=== PATIENT | female | born 1995 | race Hispanic/Latino ===

== ENCOUNTER 2017-10-24 08:14 | Emergency (ER) | payer OTHER ==
--- NOTE | 2017-10-24 08:42 | ER ---
Nurse's Notes [facility] Name: Lulú Salgado Age: 22 yrs Sex: Female : 1995 Arrival Date: 10/24/2017 Time: 08:18 Bed 20 Private MD: Out, [facility] Diagnosis: Otitis media, unspecified, right ear;Otitis externa Presentation: 10/24 08:26 Presenting complaint: Patient states: R ear pain and intermittent fever since yesterday ss morning. Transition of care: patient was not received from another setting of care. Onset of symptoms was October 23, 2017. Risk Assessment: Do you want to hurt yourself or someone else? Patient reports no desire to harm self or others. Initial Sepsis Screen: Does the patient meet any 2 criteria? No. Patient's initial sepsis screen is negative. Does the patient have a suspected source of infection? No. Patient's initial sepsis screen is negative. Care prior to arrival: None. 08:26 Method Of Arrival: Ambulatory ss 08:26 Acuity: BEHZAD 5 ss Historical: - Allergies: 08:27 No Known Allergies; ss - Home Meds: 08:27 levothyroxine 300 mcg tab 1 tab once daily [Active]; ss - PMHx: 08:27 Seizures; Hypothyroidism; thyroid CA (resolved s/p thyroidectomy); ss - PSHx: 08:27 Thyroidectomy; L leg; bilateral feet; ss - Immunization history:: Adult Immunizations unknown. - Social history:: Smoking status: Patient/guardian denies using tobacco. - Ebola Screening: : Patient denies exposure to infectious person Patient denies travel to an Ebola-affected area in the 21 days before illness onset. - Family history:: not pertinent. Screenin:47 Abuse screen: Denies threats or abuse. Denies injuries from another. Nutritional ph screening: No deficits noted. Tuberculosis screening: No symptoms or risk factors identified. Fall Risk None identified. Assessment: 08:48 General: Appears in no apparent distress. comfortable, Behavior is calm, cooperative, ph appropriate for age, Reports fever for 12-24 hours. Pain: Complains of pain in right ear. Neuro: Level of Consciousness is awake, alert, obeys commands, Oriented to person, place, time, situation. Cardiovascular: Capillary refill < 3 seconds in bilateral fingers Patient's skin is warm and dry. Respiratory: Airway is patent Respiratory effort is even, unlabored, Respiratory pattern is regular, symmetrical. EENT: Reports pain in right ear. Derm: Skin is intact, is healthy with good turgor, Skin is pink, warm \T\ dry. Musculoskeletal: Circulation, motion, and sensation intact. Range of motion: intact in all extremities. Vital Signs: 08:27 Resp 16; Weight 93.44 kg; Height 4 ft. 11 in. (149.86 cm); Pain 8/10; ss 09:08 BP 131 / 82; Pulse 84; Resp 18; Temp 98.7; Pulse Ox 100% on R/A; ph 08:27 Body Mass Index 41.61 (93.44 kg, 149.86 cm) ED Course: 08:18 Patient arrived in ED. sb2 08:19 Out, of [facility] is Private Physician. sb2 08:22 Ray Villatoro MD is Attending Physician. [facility] 08:26 Triage completed. 08:27 Arm band placed on right wrist. 08:36 Silvia Rodriguez, RN is Primary Nurse. ph 08:50 Patient has correct armband on for positive identification. Bed in low position. Call ph light in reach. Side rails up X 1. Pulse ox on. NIBP on. 08:50 No provider procedures requiring assistance completed. Patient did not have IV access ph during this emergency room visit. Administered Medications: 08:47 Drug: Augmentin 875 mg Route: PO; ph 09:07 Follow up: Response: No adverse reaction ph 08:47 Drug: Cortisporin Drops 4 drops Route: Otic; Site: right ear; ph 09:07 Follow up: Response: No adverse reaction ph Outcome: 08:42 Discharge ordered by . damaris 09:08 Discharged to home ambulatory, with family. ph 09:08 Condition: good 09:08 Discharge instructions given to patient, Instructed on discharge instructions, follow up and referral plans. medication usage, Demonstrated understanding of instructions, follow-up care, medications, Prescriptions given X 2. 09:10 Patient left the ED. ph Signatures: Ray Villatoro MD MD cha Smirch, Shelby RN RN Silvia Rodriguez RN RN Valerie Sanchez sb2
--- NOTE | 2017-10-24 08:42 | EDPHYS ---
Physician Documentation [facility] Name: Lulú Salgado Age: 22 yrs Sex: Female : 1995 Arrival Date: 10/24/2017 Time: 08:18 Bed 20 Private MD: Out, [facility] ED Physician Ray Villatoro HPI: 10/24 08:37 This 22 yrs old Female presents to ER via Ambulatory with complaints of Ear damaris Pain, Fever. 08:37 The patient presents with drainage, pain, tenderness. The complaints affect the right damaris ear. Onset: The symptoms/episode began/occurred 2 day(s) ago. Modifying factors: The symptoms are alleviated by nothing. Associated signs and symptoms: The patient has no apparent associated signs or symptoms. Severity of symptoms: At their worst the symptoms were mild in the emergency department the symptoms are unchanged. The patient has not experienced similar symptoms in the past. Historical: - Allergies: 08:27 No Known Allergies; ss - Home Meds: 08:27 levothyroxine 300 mcg tab 1 tab once daily [Active]; ss - PMHx: 08:27 Seizures; Hypothyroidism; thyroid CA (resolved s/p thyroidectomy); ss - PSHx: 08:27 Thyroidectomy; L leg; bilateral feet; ss - Immunization history:: Adult Immunizations unknown. - Social history:: Smoking status: Patient/guardian denies using tobacco. - Ebola Screening: : Patient denies exposure to infectious person Patient denies travel to an Ebola-affected area in the 21 days before illness onset. - Family history:: not pertinent. ROS: 08:37 Constitutional: Negative for fever, chills, and weight loss, Eyes: Negative for injury, damaris pain, redness, and discharge, Neck: Negative for injury, pain, and swelling, Cardiovascular: Negative for chest pain, palpitations, and edema, Respiratory: Negative for shortness of breath, cough, wheezing, and pleuritic chest pain, Abdomen/GI: Negative for abdominal pain, nausea, vomiting, diarrhea, and constipation, Back: Negative for injury and pain, : Negative for injury, bleeding, discharge, and swelling, MS/Extremity: Negative for injury and deformity, Skin: Negative for injury, rash, and discoloration, Neuro: Negative for headache, weakness, numbness, tingling, and seizure. 08:37 ENT: Positive for drainage from ear(s), ear pain, of the right ear. Exam: 08:37 Constitutional: This is a well developed, well nourished patient who is awake, alert, damaris and in no acute distress. Head/Face: Normocephalic, atraumatic. Eyes: Pupils equal round and reactive to light, extra-ocular motions intact. Lids and lashes normal. Conjunctiva and sclera are non-icteric and not injected. Cornea within normal limits. Periorbital areas with no swelling, redness, or edema. Neck: Trachea midline, no thyromegaly or masses palpated, and no cervical lymphadenopathy. Supple, full range of motion without nuchal rigidity, or vertebral point tenderness. No Meningismus. Chest/axilla: Normal chest wall appearance and motion. Nontender with no deformity. No lesions are appreciated. Cardiovascular: Regular rate and rhythm with a normal S1 and S2. No gallops, murmurs, or rubs. Normal PMI, no JVD. No pulse deficits. Respiratory: Lungs have equal breath sounds bilaterally, clear to auscultation and percussion. No rales, rhonchi or wheezes noted. No increased work of breathing, no retractions or nasal flaring. Abdomen/GI: Soft, non-tender, with normal bowel sounds. No distension or tympany. No guarding or rebound. No evidence of tenderness throughout. Back: No spinal tenderness. No costovertebral tenderness. Full range of motion. Skin: Warm, dry with normal turgor. Normal color with no rashes, no lesions, and no evidence of cellulitis. MS/ Extremity: Pulses equal, no cyanosis. Neurovascular intact. Full, normal range of motion. Neuro: Awake and alert, GCS 15, oriented to person, place, time, and situation. Cranial nerves II-XII grossly intact. Motor strength 5/5 in all extremities. Sensory grossly intact. Cerebellar exam normal. Normal gait. Psych: Awake, alert, with orientation to person, place and time. Behavior, mood, and affect are within normal limits. 08:37 ENT: Ear canal(s): erythema, that is minimal, that is moderate, bilaterally, TM's: erythema, that is moderate. Vital Signs: 08:27 Resp 16; Weight 93.44 kg; Height 4 ft. 11 in. (149.86 cm); Pain 8/10; ss 09:08 BP 131 / 82; Pulse 84; Resp 18; Temp 98.7; Pulse Ox 100% on R/A; ph 08:27 Body Mass Index 41.61 (93.44 kg, 149.86 cm) MDM: 08:22 Patient medically screened. damaris Administered Medications: 08:47 Drug: Augmentin 875 mg Route: PO; ph 09:07 Follow up: Response: No adverse reaction ph 08:47 Drug: Cortisporin Drops 4 drops Route: Otic; Site: right ear; ph 09:07 Follow up: Response: No adverse reaction ph Disposition: 10/24/17 08:42 Discharged to Home. Impression: Otitis media, unspecified, right ear, Otitis externa. - Condition is Fair. - Discharge Instructions: Otitis Media, Adult, Otitis Externa, Otitis Externa, [id number]. - Prescriptions for Augmentin 875- 125 mg Oral Tablet - take 1 tablet by ORAL route every 12 hours for 10 days; 20 tablet. Cortisporin- TC 3.3-3-10-0.5 mg/mL Otic Suspension - instill 4 drop by OTIC route every 6 hours; 1 bottle. - Medication Reconciliation Form, Thank You Letter, Antibiotic Education, Prescription Opioid Use form. - Follow up: Private Physician; When: 2 - 3 days; Reason: Recheck today's complaints, Continuance of care, Re-evaluation by your physician. - Problem is new. - Symptoms have improved. Signatures: Ray Villatoro MD MD cha Smirch, Shelby, RN RN Silvia Rodriguez RN RN ph Corrections: (The following items were deleted from the chart) 09:10 08:42 10/24/2017 08:42 Discharged to Home. Impression: Otitis media, unspecified, right ph ear; Otitis externa. Condition is Fair. Forms are Medication Reconciliation Form, Thank You Letter, Antibiotic Education, Prescription Opioid Use. Follow up: Private Physician; When: 2 - 3 days; Reason: Recheck today's complaints, Continuance of care, Re-evaluation by your physician. Problem is new. Symptoms have improved. damaris
[2017-10-24] MEDS ORDERED: NEOMY/POLY/HC 1% OTIC DROPS ONE (08:45)
[2017-10-24] MEDS ORDERED: AMOX/K CLAV 875 MG TAB ONE (08:45)
== END 2017-10-24 09:10 | disposition home or self-care (01) ==
LOC: ER 08:14
DX: H66.91 Otitis media, unspecified, right ear (principal); H60.91 Unspecified otitis externa, right ear; Z85.850 Personal history of malignant neoplasm of thyroid
CPT/HCPCS: 99283